=== PATIENT | male | born 1985 | race Caucasian/White ===

== ENCOUNTER 2019-11-29 20:11 | Emergency (ER) | payer OTHER ==
[~2019-11-29] VITALS: Ht 180.3 cm; Wt 79.5 kg
[2019-11-29 21:19] VITALS: BP 129/99
[2019-11-30 08:16] LABS: HIV ANTIBODY 1&2 RAPID NON-REACTIVE (Neg)
[2019-12-02 13:23] LABS: HEP B CORE AB, TOT Negative (Negative); HEPATITIS C ANTIBODY <0.1 s/co ratio (0.0-0.9)
== END 2019-11-29 21:20 | disposition home or self-care (01) ==
LOC: ER 20:12
DX: S40.811A Abrasion of right upper arm, initial encounter (principal); Z77.21 Contact with and (suspected) exposure to potentially hazardous body fluids; W50.3XXA Accidental bite by another person, initial encounter; Y93.89 Activity, other specified; Y92.89 Other specified places as the place of occurrence of the external cause; Y99.8 Other external cause status
CPT/HCPCS: 36415; 86703; 86704; 86705; 86706; 86803; 99283